=== PATIENT | male | born 1930 | race Caucasian/White ===

== ENCOUNTER → 2016-12-02 | Outpatient (CLI) | payer MEDICARE, OTHER ==
[~2016-12-02] MED LIST: ACETYLCYST200 MG/11 IH; ANTACID LIQUID355 ML PO; APRESOLINE-DPS10 MG PO; ASA CHILDREN'S81 MG PO; B-12 INJ1000 MCG/M IM; BISAC-EVAC10 MG PR; BUSPAR DPS10 MG PO; CALCIUM500 M1 PO; CARBIDOPA-LEVO1 EAC3 PO; CARBIDOPA-LEVO1 EAC6 PO; COLACE-DPS100 MG PO; COLACE100 MG PO; COUMADIN5 MG PO; COUMADIN7.5 MG PO; CYANOCOBAL1000 MCG/1 SQ; DELTASONE DPS1 MG PO; DELTASONE DPS10 MG PO; DELTASONE DPS2.5 MG PO; DEMADEX20 MG PO; DULCOLAX-DPS10 MG PR; DULCOLAX5 MG PO; DUONEB DPS3 ML IH; DUONEB DPS3 ML PO; FEOSOL-DPS325 MG PO; FEOSOL325 MG PO; FLONASE 0.05% D16 GM NS; IRON325 M1 PO; KLONOPIN DPS0.5 MG PO; KLONOPIN0.5 MG PO; KLOR-CON M2020 ME1 PO; LASIX DPS40 MG PO; LEVOTHYROXINE150 MCG PO; LISINOPRIL2.5 MG PO; LOPRESSOR DPS50 MG PO; LOPRESSOR100 MG PO; LORTAB 5-325 M1 EACH PO; MAALOX DPS30 ML PO; MAG-OX400 MG PO; MILK OF MAGNESI10 ML PO; MIRALAX PACKET17 GM PO; MIRALAX17 GM PO; MONTELUKAST SOD10 MG PO; MUCOMYST IH; MYCOSTATIN PWD15 GM TP; NASA MIST SALI177 ML NS; NASAL SPRAY44 ML NS; NASAREL NASAL S25 ML NS; NEOSPORIN-DPS15 GM TP; NITROSTAT0.4 MG SL; NORCO 5-325 TA1 EACH PO; NORVASC5 MG PO; NYSTATIN100000 UNI TP; OMNICEF DPS300 MG PO; ORGAN-I NR200 MG PO; OXYGEN IH; PEPCID DPS20 MG PO; PHOS-LO667 MG PO; POTASSIUM CHLO20 ME1 PO; POTASSIUM CHLO20 ME2 PO; PRAVACHOL10 MG PO; PRESERVISION A1 EAC1 PO; PRESERVISION A1 EAC2 PO; PRESERVISION A1 EACH PO; PROAIR RESPICL90 MCG IH; PROSCAR DPS5 MG PO; PROSCAR5 MG PO; PROTONIX40 MG PO; PROVENTIL HFA6.7 GM IH; ROBITUSSIN AC D30 ML PO; ROCALTROL DP0.25 MCG PO; SENNALAX-S TAB1 EACH PO; SENOKOT DPS8.6 MG PO; SENOKOT-S TABL1 EACH PO; SIMETHICON40 MG/0.6 PO; SINEMET 25-1001 EACH PO; SINGULAIR10 MG PO; SPIRIVA18 MCG IH; SPORTS CREAM85 GM TP; SURFAK240 MG PO; SYMBICORT160 MCG/6 IH; SYMBICORT80 MCG/6.9 IH; SYNTHROID150 MCG PO; TUSSIN100 MG/5 M PO; TYLENOL DPS325 MG PO; TYLENOL EXTRA500 M1 PO; TYLENOL325 MG PO; VIBRAMYCIN-DPS100 M2 PO; VITAMIN B-1000 MCG/1 IM; VITAMIN D31000 UNIT PO; WARFARIN SODIU7.5 MG PO; WARFARIN SODIUM5 MG PO; [UNRECOGNIZED DRUG - CODE] IH
== END | disposition home or self-care (01) ==
LOC: RAD.S 15:07
DX: J90 Pleural effusion, not elsewhere classified (principal); R06.00 Dyspnea, unspecified; J98.11 Atelectasis

== ENCOUNTER 2017-02-04 08:29 | Day surgery (SDC) | payer MEDICARE, OTHER ==
[~2017-02-04] VITALS: Ht 177.8 cm; Wt 111.3 kg
[~2017-02-04 08:29] MED LIST changes: -ACETYLCYST200 MG/11 IH; -CALCIUM500 M1 PO; -CARBIDOPA-LEVO1 EAC6 PO; -COLACE-DPS100 MG PO; -COUMADIN7.5 MG PO; -CYANOCOBAL1000 MCG/1 SQ; -DELTASONE DPS1 MG PO; -DELTASONE DPS10 MG PO; -DEMADEX20 MG PO; -DULCOLAX-DPS10 MG PR; -DUONEB DPS3 ML PO; -FEOSOL-DPS325 MG PO; -FLONASE 0.05% D16 GM NS; -IRON325 M1 PO; -KLONOPIN DPS0.5 MG PO; -KLOR-CON M2020 ME1 PO; -LEVOTHYROXINE150 MCG PO; -MIRALAX PACKET17 GM PO; -MONTELUKAST SOD10 MG PO; -MUCOMYST IH; -MYCOSTATIN PWD15 GM TP; -NASA MIST SALI177 ML NS; -NASAL SPRAY44 ML NS; -NEOSPORIN-DPS15 GM TP; -NORCO 5-325 TA1 EACH PO; -NYSTATIN100000 UNI TP; -OXYGEN IH; -PEPCID DPS20 MG PO; -POTASSIUM CHLO20 ME1 PO; -PRESERVISION A1 EAC1 PO; -PRESERVISION A1 EACH PO; -PROSCAR DPS5 MG PO; -PROVENTIL HFA6.7 GM IH; -ROBITUSSIN AC D30 ML PO; -ROCALTROL DP0.25 MCG PO; -SENNALAX-S TAB1 EACH PO; -SENOKOT-S TABL1 EACH PO; -SIMETHICON40 MG/0.6 PO; -SINEMET 25-1001 EACH PO; -SPORTS CREAM85 GM TP; -SYMBICORT80 MCG/6.9 IH; -TUSSIN100 MG/5 M PO; -TYLENOL DPS325 MG PO; -TYLENOL EXTRA500 M1 PO; -VIBRAMYCIN-DPS100 M2 PO; -VITAMIN B-1000 MCG/1 IM; -VITAMIN D31000 UNIT PO
--- NOTE | 2017-02-23 07:06 | OR ---
ADMIT: 02/04/2017 RM/LOC: [facility] MR#: [id number] [address] [facility] [address] [place] [id number] [address] [place] [address] Operative/Delivery Room Report SEX: M AGE: 86 : 1930 SURGERY DATE: 02/04/2017 SURGEON: Rahul Tay MD PREOPERATIVE DIAGNOSES: History of Nelson's esophagus as well as history of colon polyps and previous colon resection. Also, undesired nonfunctioning loop recorder they would like to have it removed. POSTOPERATIVE DIAGNOSES: 1. Mild antral gastritis, small hiatal hernia. 2. Multiple polyps in the colon. In the transverse colon, hepatic flexure, ascending colon, sigmoid colon, rectum. 3. Diverticula. PROCEDURE PERFORMED: 1. Removal of subcutaneous loop recorder in the left upper chest. 2. EGD with biopsies. 3. Colonoscopy with multiple cold biopsies, 5 separate polyps transverse colon, hepatic flexure, ascending colon, sigmoid colon, and rectal polyps all just a few millimeters in size. DESCRIPTION OF PROCEDURE: After appropriate informed consent was obtained, the patient was brought to the operating room. IV sedation was provided. The area over his loop recorder was prepped and draped in sterile fashion. 1% lidocaine with epinephrine was injected in the skin and deep tissues. A small incision was made directly over this, loop recorder carried deep with sharp dissection. The suture holding the recorder in place was cut and removed, and the recorder was removed in its entirety. The wound was nice and dry, it was then closed with several interrupted 4-0 Monocryl sutures in subcuticular layer. Sterile dressings were applied. I then proceeded with upper endoscopy. A well-lubricated endoscope was introduced and passed down the esophagus. The proximal and mid esophagus appeared normal. Distal esophagus did show some mild reflux changes, not anything significant for Nelson's, small hiatal hernia also. The scope was advanced to the stomach. He did have some mild antral gastritis. The pylorus intubated. Duodenal bulb, second and third portions of the duodenum appeared normal. The scope was then pulled back into the stomach, retroflexed again revealing just a small hiatal hernia from below. No proximal gastritis or masses. Several biopsies were taken of the antrum and then biopsies also taken at the distal esophagus. The stomach was deflated and the scope withdrawn without apparent complications. I then proceeded with colonoscopy. Rectal exam revealed mild hemorrhoids. No rectal mass. He had a very tight anal opening. The scope was introduced and passed through the entire length of the colon. He had a moderate prep just some liquid stool throughout, it was irrigated and suctioned out. He did have extensive sigmoid diverticula and some tortuosity of sigmoid colon. On the way in, there were multiple polyps identified all small, adenomatous-appearing ADMIT: 02/04/2017 RM/LOC: [facility] MR#: [id number] [address] [place] [id number] [place] [address] Operative/Delivery Room Report SEX: M AGE: 86 : 1930 polyps, I ended up removing polyps in the transverse colon, hepatic flexure region, ascending colon, and then on the way out of the sigmoid colon and the rectum. Again, these were all just a few millimeters in size and adenomatous in nature. This were all removed with the cold biopsy forceps. The scope was advanced to the ileocolic anastomosis. The anastomosis appeared pretty narrow, but did not have any recurrent mass or tumor there. The scope was slowly and carefully withdrawn. Again, the above-noted polyps were all removed either on the way in or on the way out. The scope was retroflexed in rectum revealing mild internal hemorrhoids. No rectal masses. The patient tolerated the procedure well and was taken to the recovery room in stable condition. Rahul Tay MD/ [place] JOB #: [id number] CC: Rahul Tay MD, Attending Physician Cezar Domínguez MD, Family Physician MD Michel Maravilla MD
[2017-03-24] MEDS ORDERED: TYLENOL EXTRA500 M1 PO (13:51)
[2017-03-24] MEDS ORDERED: PROAIR RESPICL90 MCG IH (13:52)
[2017-03-24] MEDS ORDERED: SIMETHICON40 MG/0.6 PO (14:10)
[2017-03-24] MEDS ORDERED: ASA CHILDREN'S81 MG PO (14:10)
[2017-03-24] MEDS ORDERED: VITAMIN B-1000 MCG/1 IM (14:11)
[2017-03-24] MEDS ORDERED: ROCALTROL DP0.25 MCG PO (14:11)
[2017-03-24] MEDS ORDERED: IRON325 M1 PO (14:12)
[2017-03-24] MEDS ORDERED: FLONASE 0.05% D16 GM NS (14:13)
[2017-03-24] MEDS ORDERED: TUSSIN100 MG/5 M PO (14:17)
[2017-03-24] MEDS ORDERED: NEOSPORIN-DPS15 GM TP (14:20)
[2017-03-24] MEDS ORDERED: NITROSTAT0.4 MG SL (14:20)
[2017-03-24] MEDS ORDERED: NYSTATIN100000 UNI TP (14:21)
[2017-03-24] MEDS ORDERED: PEPCID DPS20 MG PO (14:22)
[2017-03-24] MEDS ORDERED: PRESERVISION A1 EAC1 PO (14:22)
[2017-03-24] MEDS ORDERED: OXYGEN IH (14:22)
[2017-03-24] MEDS ORDERED: NASA MIST SALI177 ML NS (14:23)
[2017-03-24] MEDS ORDERED: DEMADEX20 MG PO (14:41)
[2017-03-24] MEDS ORDERED: DELTASONE DPS1 MG PO (14:41)
[2017-03-24] MEDS ORDERED: VIBRAMYCIN-DPS100 M2 PO (14:41)
[2017-03-24] MEDS ORDERED: VITAMIN D31000 UNIT PO (14:41)
[2017-04-12] MEDS ORDERED: PROVENTIL HFA6.7 GM IH (18:11)
[2017-04-12] MEDS ORDERED: ACETYLCYST200 MG/11 IH (18:11)
[2017-04-12] MEDS ORDERED: DUONEB DPS3 ML IH (18:11)
[2017-04-12] MEDS ORDERED: NORVASC5 MG PO (18:12)
[2017-04-12] MEDS ORDERED: BUSPAR DPS10 MG PO (18:12)
[2017-04-12] MEDS ORDERED: DULCOLAX-DPS10 MG PR (18:12)
[2017-04-12] MEDS ORDERED: SYMBICORT160 MCG/6 IH (18:12)
[2017-04-12] MEDS ORDERED: ROCALTROL DP0.25 MCG PO (18:13)
[2017-04-12] MEDS ORDERED: VITAMIN D31000 UNIT PO (18:14)
[2017-04-12] MEDS ORDERED: KLONOPIN DPS0.5 MG PO (18:14)
[2017-04-12] MEDS ORDERED: CARBIDOPA-LEVO1 EAC6 PO (18:14)
[2017-04-12] MEDS ORDERED: SENNALAX-S TAB1 EACH PO (18:15)
[2017-04-12] MEDS ORDERED: CYANOCOBAL1000 MCG/1 SQ (18:15)
[2017-04-12] MEDS ORDERED: PEPCID DPS20 MG PO (18:15)
[2017-04-12] MEDS ORDERED: APRESOLINE-DPS10 MG PO (18:16)
[2017-04-12] MEDS ORDERED: ORGAN-I NR200 MG PO (18:16)
[2017-04-12] MEDS ORDERED: FEOSOL-DPS325 MG PO (18:16)
[2017-04-12] MEDS ORDERED: PROSCAR DPS5 MG PO (18:16)
[2017-04-12] MEDS ORDERED: FLONASE 0.05% D16 GM NS (18:16)
[2017-04-12] MEDS ORDERED: MAG-OX400 MG PO (18:17)
[2017-04-12] MEDS ORDERED: SYNTHROID150 MCG PO (18:17)
[2017-04-12] MEDS ORDERED: MIRALAX17 GM PO (18:17)
[2017-04-12] MEDS ORDERED: LOPRESSOR DPS50 MG PO (18:17)
[2017-04-12] MEDS ORDERED: KLOR-CON M2020 ME1 PO (18:18)
[2017-04-12] MEDS ORDERED: PRAVACHOL10 MG PO (18:18)
[2017-04-12] MEDS ORDERED: DELTASONE DPS10 MG PO (18:18)
[2017-04-12] MEDS ORDERED: PRESERVISION A1 EACH PO (18:18)
[2017-04-12] MEDS ORDERED: MONTELUKAST SOD10 MG PO (18:18)
[2017-04-12] MEDS ORDERED: DEMADEX20 MG PO ×2 (18:26)
[2017-04-12] MEDS ORDERED: SPIRIVA18 MCG IH (18:26)
[2017-04-12] MEDS ORDERED: NORCO 5-325 TA1 EACH PO (18:26)
[2017-04-12] MEDS ORDERED: NASAL SPRAY44 ML NS (18:27)
[2017-04-12] MEDS ORDERED: COUMADIN5 MG PO (18:27)
[2017-04-12] MEDS ORDERED: MYCOSTATIN PWD15 GM TP (18:28)
[2017-04-12] MEDS ORDERED: MAALOX DPS30 ML PO (18:28)
[2017-04-12] MEDS ORDERED: COLACE-DPS100 MG PO (18:29)
[2017-04-12] MEDS ORDERED: NEOSPORIN-DPS15 GM TP (18:29)
[2017-04-12] MEDS ORDERED: NITROSTAT0.4 MG SL (18:29)
[2017-04-12] MEDS ORDERED: TYLENOL DPS325 MG PO (18:29)
[2017-05-09] MEDS ORDERED: COUMADIN5 MG PO (10:33)
[2017-05-09] MEDS ORDERED: PEPCID DPS20 MG PO (10:33)
[2017-05-09] MEDS ORDERED: ASA CHILDREN'S81 MG PO (10:33)
[2017-05-09] MEDS ORDERED: PRAVACHOL10 MG PO (10:33)
[2017-05-09] MEDS ORDERED: COUMADIN7.5 MG PO (10:34)
[2017-05-09] MEDS ORDERED: SPIRIVA18 MCG IH (10:35)
[2017-05-09] MEDS ORDERED: BUSPAR DPS10 MG PO (10:35)
[2017-05-09] MEDS ORDERED: DEMADEX20 MG PO (10:35)
[2017-05-09] MEDS ORDERED: SYMBICORT80 MCG/6.9 IH (10:36)
[2017-05-09] MEDS ORDERED: LOPRESSOR DPS50 MG PO (10:36)
[2017-05-09] MEDS ORDERED: POTASSIUM CHLO20 ME1 PO (10:36)
[2017-05-09] MEDS ORDERED: PRESERVISION A1 EACH PO (10:36)
[2017-05-09] MEDS ORDERED: MUCOMYST IH (10:38)
[2017-05-09] MEDS ORDERED: DUONEB DPS3 ML PO (10:40)
[2017-05-09] MEDS ORDERED: SINEMET 25-1001 EACH PO (10:40)
[2017-05-09] MEDS ORDERED: LEVOTHYROXINE150 MCG PO (10:41)
[2017-05-09] MEDS ORDERED: MIRALAX PACKET17 GM PO (10:42)
[2017-05-09] MEDS ORDERED: MONTELUKAST SOD10 MG PO (10:42)
[2017-05-09] MEDS ORDERED: ROBITUSSIN AC D30 ML PO (10:42)
[2017-05-09] MEDS ORDERED: PROSCAR DPS5 MG PO (10:42)
[2017-05-09] MEDS ORDERED: ORGAN-I NR200 MG PO (10:42)
[2017-05-09] MEDS ORDERED: SENOKOT-S TABL1 EACH PO (10:43)
[2017-05-09] MEDS ORDERED: CALCIUM500 M1 PO (10:43)
[2017-05-09] MEDS ORDERED: DUONEB DPS3 ML IH (10:44)
[2017-05-09] MEDS ORDERED: TYLENOL DPS325 MG PO (10:44)
[2017-05-09] MEDS ORDERED: DULCOLAX-DPS10 MG PR (10:44)
[2017-05-09] MEDS ORDERED: SPORTS CREAM85 GM TP (10:45)
== END 2017-02-04 13:17 | disposition home or self-care (01) ==
LOC: SSS 08:29
PROC: 0DB38ZX Excision of Lower Esophagus, Via Natural or Artificial Opening Endoscopic, Diagnostic (ICD-10-PCS; principal; 2017-02-04)
PROC: 0DBN8ZX Excision of Sigmoid Colon, Via Natural or Artificial Opening Endoscopic, Diagnostic (ICD-10-PCS; principal; 2017-02-04)
PROC: 0DBP8ZX Excision of Rectum, Via Natural or Artificial Opening Endoscopic, Diagnostic (ICD-10-PCS; principal; 2017-02-04)
PROC: 2W54XYZ Removal of Other Device on Chest Wall (ICD-10-PCS; principal; 2017-02-04)
PROC: 0DBL8ZX Excision of Transverse Colon, Via Natural or Artificial Opening Endoscopic, Diagnostic (ICD-10-PCS; principal; 2017-02-04)
PROC: 0DBK8ZX Excision of Ascending Colon, Via Natural or Artificial Opening Endoscopic, Diagnostic (ICD-10-PCS; principal; 2017-02-04)
PROC: 0DB68ZX Excision of Stomach, Via Natural or Artificial Opening Endoscopic, Diagnostic (ICD-10-PCS; principal; 2017-02-04)
DX: K29.50 Unspecified chronic gastritis without bleeding (principal); D12.3 Benign neoplasm of transverse colon; D12.2 Benign neoplasm of ascending colon; D12.5 Benign neoplasm of sigmoid colon; D12.8 Benign neoplasm of rectum; K22.10 Ulcer of esophagus without bleeding; K57.30 Diverticulosis of large intestine without perforation or abscess without bleeding; K44.9 Diaphragmatic hernia without obstruction or gangrene; I48.91 Unspecified atrial fibrillation; F41.9 Anxiety disorder, unspecified; J45.909 Unspecified asthma, uncomplicated; F32.9 Major depressive disorder, single episode, unspecified; D64.9 Anemia, unspecified; K59.00 Constipation, unspecified; J44.9 Chronic obstructive pulmonary disease, unspecified; K22.70 Barrett's esophagus without dysplasia; Z87.891 Personal history of nicotine dependence; Z79.899 Other long term (current) drug therapy

== ENCOUNTER 2017-04-29 14:05 | Inpatient (IN) | payer MEDICARE, OTHER ==
[~2017-04-29 14:05] MED LIST changes: +ACETYLCYST200 MG/11 IH; +CARBIDOPA-LEVO1 EAC6 PO; +COLACE-DPS100 MG PO; +CYANOCOBAL1000 MCG/1 SQ; +DELTASONE DPS1 MG PO; +DELTASONE DPS10 MG PO; +DEMADEX20 MG PO; +DULCOLAX-DPS10 MG PR; +FEOSOL-DPS325 MG PO; +FLONASE 0.05% D16 GM NS; +IRON325 M1 PO; +KLONOPIN DPS0.5 MG PO; +KLOR-CON M2020 ME1 PO; +MONTELUKAST SOD10 MG PO; +MYCOSTATIN PWD15 GM TP; +NASA MIST SALI177 ML NS; +NASAL SPRAY44 ML NS; +NEOSPORIN-DPS15 GM TP; +NORCO 5-325 TA1 EACH PO; +NYSTATIN100000 UNI TP; +OXYGEN IH; +PEPCID DPS20 MG PO; +PRESERVISION A1 EAC1 PO; +PRESERVISION A1 EACH PO; +PROSCAR DPS5 MG PO; +PROVENTIL HFA6.7 GM IH; +ROCALTROL DP0.25 MCG PO; +SENNALAX-S TAB1 EACH PO; +SIMETHICON40 MG/0.6 PO; +TUSSIN100 MG/5 M PO; +TYLENOL DPS325 MG PO; +TYLENOL EXTRA500 M1 PO; +VIBRAMYCIN-DPS100 M2 PO; +VITAMIN B-1000 MCG/1 IM; +VITAMIN D31000 UNIT PO
[2017-05-09] MEDS ORDERED: PEPCID DPS20 MG PO (10:33)
[2017-05-09] MEDS ORDERED: ASA CHILDREN'S81 MG PO (10:33)
[2017-05-09] MEDS ORDERED: PRAVACHOL10 MG PO (10:33)
[2017-05-09] MEDS ORDERED: COUMADIN5 MG PO (10:33)
[2017-05-09] MEDS ORDERED: COUMADIN7.5 MG PO (10:34)
[2017-05-09] MEDS ORDERED: DEMADEX20 MG PO (10:35)
[2017-05-09] MEDS ORDERED: SPIRIVA18 MCG IH (10:35)
[2017-05-09] MEDS ORDERED: BUSPAR DPS10 MG PO (10:35)
[2017-05-09] MEDS ORDERED: POTASSIUM CHLO20 ME1 PO (10:36)
[2017-05-09] MEDS ORDERED: SYMBICORT80 MCG/6.9 IH (10:36)
[2017-05-09] MEDS ORDERED: PRESERVISION A1 EACH PO (10:36)
[2017-05-09] MEDS ORDERED: LOPRESSOR DPS50 MG PO (10:36)
[2017-05-09] MEDS ORDERED: MUCOMYST IH (10:38)
[2017-05-09] MEDS ORDERED: DUONEB DPS3 ML PO (10:40)
[2017-05-09] MEDS ORDERED: SINEMET 25-1001 EACH PO (10:40)
[2017-05-09] MEDS ORDERED: LEVOTHYROXINE150 MCG PO (10:41)
[2017-05-09] MEDS ORDERED: PROSCAR DPS5 MG PO (10:42)
[2017-05-09] MEDS ORDERED: ORGAN-I NR200 MG PO (10:42)
[2017-05-09] MEDS ORDERED: ROBITUSSIN AC D30 ML PO (10:42)
[2017-05-09] MEDS ORDERED: MIRALAX PACKET17 GM PO (10:42)
[2017-05-09] MEDS ORDERED: MONTELUKAST SOD10 MG PO (10:42)
[2017-05-09] MEDS ORDERED: CALCIUM500 M1 PO (10:43)
[2017-05-09] MEDS ORDERED: SENOKOT-S TABL1 EACH PO (10:43)
[2017-05-09] MEDS ORDERED: DUONEB DPS3 ML IH (10:44)
[2017-05-09] MEDS ORDERED: TYLENOL DPS325 MG PO (10:44)
[2017-05-09] MEDS ORDERED: DULCOLAX-DPS10 MG PR (10:44)
[2017-05-09] MEDS ORDERED: SPORTS CREAM85 GM TP (10:45)
== END 2017-05-08 11:47 | disposition home health service (06) | DRG 436 ==
DX: C22.1 Intrahepatic bile duct carcinoma (principal); C25.9 Malignant neoplasm of pancreas, unspecified; J90 Pleural effusion, not elsewhere classified; R18.8 Other ascites; N18.4 Chronic kidney disease, stage 4 (severe); I48.2 Chronic atrial fibrillation; N17.9 Acute kidney failure, unspecified; E11.22 Type 2 diabetes mellitus with diabetic chronic kidney disease; I13.0 Hypertensive heart and chronic kidney disease with heart failure and stage 1 through stage 4 chronic kidney disease, or unspecified chronic kidney disease; I50.32 Chronic diastolic (congestive) heart failure; G20 Parkinson's disease; E78.5 Hyperlipidemia, unspecified; I69.398 Other sequelae of cerebral infarction; R26.89 Other abnormalities of gait and mobility; E03.9 Hypothyroidism, unspecified; K21.9 Gastro-esophageal reflux disease without esophagitis; K59.00 Constipation, unspecified; J44.9 Chronic obstructive pulmonary disease, unspecified; E66.9 Obesity, unspecified; G47.33 Obstructive sleep apnea (adult) (pediatric); N40.0 Benign prostatic hyperplasia without lower urinary tract symptoms; E87.6 Hypokalemia; D64.9 Anemia, unspecified; Z68.36 Body mass index [BMI] 36.0-36.9, adult; Z79.82 Long term (current) use of aspirin